=== PATIENT | female | born 1995 | race African-American/Black ===

== ENCOUNTER 2020-06-04 06:55 | Inpatient (IN) | payer BC ==
--- OUTSIDE RECORDS SUMMARY | 2020-06-04 07:46 | XMS ---
:1995 Author Organization [facility] Support Name Relationship Address Phone UE Unavailable Unavailable Unavailable [employer] [address] [place] [address] Re-disclosure Warning The records that you are about to access may contain information from federally- assisted alcohol or drug abuse programs. If such information is present, then the following federally mandated warning applies: This information has been disclosed to you from records protected by federal confidentiality rules (42 CFR part 2). The federal rules prohibit you from making any further disclosure of this information unless further disclosure is expressly permitted by the written consent of the person to whom it pertains or as otherwise permitted by 42 CFR part 2. A general authorization for the release of medical or other information is NOT sufficient for this purpose. The Federal rules restrict any use of the information to criminally investigate or prosecute any alcohol or drug abuse patient.The records that you are about to access may contain highly sensitive health information, the redisclosure of which is protected by Article 27-F of the [facility] Public Health law. If you continue you may haveaccess to information: Regarding HIV / AIDS; Provided by facilities licensed or operated by the [facility] Office of Mental Health; or Provided by the [facility] Office for People With Developmental Disabilities. If such information is present, then the following [facility] mandated warning applies: This information has been disclosed to you from confidential records which are protected by state law. State law prohibits you from making any further disclosure of this information without the specific written consent of the person to whom it pertains, or as otherwise permitted by law. Any unauthorized further disclosure in violation of state law may result in a fine or alf sentence or both. A general authorization for the release of medical or other information is NOT sufficient authorization for further disclosure. Insurance Providers Payer name Policy type / Policy ID Covered Covered democrat's Policy Plan Coverage type democrat ID relationship to [employer] Information boyer PPO [id number] FA [id number] BC PPO [id number] S [id number] Results ID Date Data Source [id number] 05/31/2020 09:36:00 AM EDT [facility] Name Value Range Interpretation Description Data Sup porting Code Source(s) Document(s ) SARS [facility] coronavirus 2 RNA This lab was ordered by [facility] and reported by [facility]. Procedure
[2020-06-04] MEDS ORDERED: BUTORPHANOL TARTRATE 1 MG/ML VIAL IVPB PRN (07:56)
[2020-06-04] MEDS ORDERED: DINOPROSTONE 10 MG VAGINAL SUPPOSITORY VG ONE (07:58)
--- NOTE | 2020-06-04 07:59 | HP ---
Past Medical History - Primary Care Physician PCP:: Jerri Patricio - Admission Chief Complaint: Postdates obesity History of Present Illness: 25 yo P0 edc 05/2020 ega 40.5 weeks admitted for induction due to obesity and postdates Pt with hx of iron infusions for anemia History Source: Patient Limitations to Obtaining History: No Limitations - Past Medical History ...: 1 Heme/Onc: Yes: Anemia - Past Surgical History Past Surgical History: Yes: None Hx Myomectomy: No Hx Transabdominal Cerclage: No - Smoking History Smoking history: Never smoked Have you smoked in the past 12 months: No - Alcohol/Substance Use Hx Alcohol Use: No History of Substance Use: reports: None - Social History ADL: Independent History of Recent Travel: No Home Medications - Allergies Allergies/Adverse Reactions: Allergies Allergy/AdvReac Type Severity Reaction Status Date / Time Penicillins Allergy Severe Hives Verified 05/09/20 14:00 shellfish derived Allergy Verified 05/09/20 14:00 - Home Medications Home Medications: Ambulatory Orders Cyclobenzaprine HCl [Flexeril -] 10 mg PO HS #7 tablet 05/30/19 Naproxen [Naprosyn] 500 mg PO BID #14 tablet 05/30/19 Vitamin Tablet 1 PO DAILY 05/02/20 Review of Systems - Review of Systems Constitutional: reports: No Symptoms Eyes: reports: No Symptoms HENT: reports: No Symptoms Neck: reports: No Symptoms Cardiovascular: reports: No Symptoms Respiratory: reports: No Symptoms Gastrointestinal: reports: No Symptoms Genitourinary: reports: No Symptoms Breasts: reports: No Symptoms Reported Musculoskeletal: reports: No Symptoms Integumentary: reports: No Symptoms Neurological: reports: No Symptoms Endocrine: reports: No Symptoms Hematology/Lymphatic: reports: No Symptoms Psychiatric: reports: No Symptoms Physical Exam - Maternity Constitutional: Yes: Well Nourished, No Distress, Obese Neck: Yes: WNL Breast(s): Yes: WNL - Abdominal Exam/OB Fundal Height: 41 Number of Fetuses: Single Presentation: Vertex Contractions: No Monitor Mode: External Heart Rate Location: [facility] Category: I Accelerations: Non-Uniform Decelerations: None - Vaginal Exam/OB Dilatation (cm): closed Effacement (%): 50 Amniotic Membrane Status: Intact Presentation: Vertex/Position Station: -2 - Physical Exam Edema: Yes Edema: LLE: Trace, RLE: Trace Psychiatric: Yes: WNL, Alert Hemorrhage Risk Assessment - Risk Factors Risk Score: 0 Risk Level: Low Risk Problem List - Problems (1) Obesity affecting in third trimester Code(s): O99.213 - OBESITY COMPLICATING , THIRD TRIMESTER (2) Post-dates Code(s): O48.0 - POST-TERM (3) 40 weeks gestation of Code(s): Z3A.40 - 40 WEEKS GESTATION OF (4) Anemia affecting in third trimester Code(s): O99.013 - ANEMIA COMPLICATING , THIRD TRIMESTER Assessment/Plan morbid obese - bmi 49 Cat 1 anemia in 40 week post term Plan Cervidil placed
[2020-06-04] MEDS ORDERED: ELECTROLYTE-148 SOLN 1,000 ML IV SCH (08:00)
[2020-06-04 09:40] VITALS: BMI 50.8
[2020-06-04 09:55] LABS: BASO % 0.5 % (0-2.0); EOS % 1.4 % (0-4.5); HEMATOCRIT 29.2 % (32.4-45.2); HEMOGLOBIN 9.6 GM/dL (10.7-15.3); LYMPH % 20.6 % (8-40); MCH 25.9 pg (25.7-33.7); MCHC 32.9 g/dl (32.0-36.0); MEAN CELL VOLUME 78.9 fl (80-96); MONO % 7.1 % (3.8-10.2); NEUT % 70.4 % (42.8-82.8); PLATELET COUNT 198 K/MM3 (134-434); RBC 3.71 M/mm3 (3.60-5.2); RDW 19.9 % (11.6-15.6); WHITE BLOOD COUNT 7.5 K/mm3 (4.0-10.0)
[2020-06-04 09:57] LABS: INR 1.07 (0.83-1.09); PROTHROMBIN TIME (PATIENT) 12.6 SEC (9.7-13.0)
[2020-06-04 09:59] LABS: ACTIVATED PTT 29.4 SECONDS (25.2-36.5)
[2020-06-04 10:05] LABS: BLOOD UREA NITROGEN 8.5 mg/dL (7-18); POTASSIUM 4.1 mmol/L (3.5-5.1)
[2020-06-04 10:08] LABS: CREATININE 0.5 mg/dL (0.55-1.3)
[2020-06-04] MEDS ORDERED: OXYTOCIN 30 UNITS in 0.9% NS 30 UNIT/500 ML INFUS.BAG IVPB ONE (20:29)
[2020-06-04] MEDS: ELECTROLYTE-148 SOLN 1,000 ML IV SCH (20:30)
--- NOTE | 2020-06-04 21:39 | PN ---
Ante-Partal Exam - Subjective Subjective: Pt doing well Vital Signs: Vital Signs Temperature 98.2 F 06/04/20 18:00 Pulse Rate 82 06/04/20 21:00 Respiratory Rate 18 06/04/20 21:00 Blood Pressure 137/90 06/04/20 21:00 O2 Sat by Pulse Oximetry (%) Bleeding: No Headache: No Visual changes: No Right upper quadrant pain: No - Contractions Contractions: Yes Regularity: Irregular Monitor Mode: External - Exam during Labor Variability: Moderate Heart Rate Location: [facility] Category: I Monitor Accelerations: Present Monitor Decelerations: None Exam: Vaginal Dilatation (cm): FT Amniotic Membrane Status: Intact Presentation: Vertex - Intrapartum Hemorrhage Risk Medium Risk Factors: None High Risk Factors: None Risk Score: 0 Risk Level: Low Risk - Assessment/Plan Assessment/Plan: Cat 1 obesity post dates 40 + week S/P cervidil Plan start pitocin stadol
[2020-06-04] MEDS ORDERED: OXYTOCIN 30 UNITS in 0.9% NS 30 UNIT/500 ML INFUS.BAG IVPB SCH (21:45)
[2020-06-05] MEDS ORDERED: BUTORPHANOL TARTRATE 2 MG/ML VIAL ONE (02:15)
[2020-06-05] MEDS ORDERED: PCA PUMP NR ONE ×3 (06:00→20:43)
[2020-06-05] MEDS ORDERED: FENTANYL/BUPIVACAINE/NS/PF - PCEA - 50 ML DISP.SYRIN EP ONE ×4 (06:00→17:17)
[2020-06-05] MEDS ORDERED: BUPIVACAINE HCL/PF 0.25% (2.5MG/ML) 10 ML VIAL ONE ×2 (06:05→16:37)
[2020-06-05] MEDS ORDERED: NALOXONE HCL 0.4 MG/ML VIAL IVPUSH PRN (06:38)
[2020-06-05] MEDS ORDERED: FENTANYL/BUPIVACAINE/NS/PF - PCEA - 50 ML DISP.SYRIN EP SCH (06:45)
--- NOTE | 2020-06-05 08:19 | PN ---
Ante-Partal Exam - Subjective Subjective: Pt comfortable after epidural pt with srom at 1150 am Vital Signs: Vital Signs Temperature 98.2 F 06/05/20 06:00 Pulse Rate 78 06/05/20 08:00 Respiratory Rate 20 06/05/20 08:00 Blood Pressure 129/81 06/05/20 08:00 O2 Sat by Pulse Oximetry (%) 99 06/05/20 08:00 Bleeding: No Headache: No Visual changes: No Right upper quadrant pain: No - Contractions Contractions: Yes Monitor Mode: External - Exam during Labor Heart Rate: 130 Variability: Moderate Category: I Monitor Accelerations: Present Monitor Decelerations: None Exam: Vaginal Dilatation (cm): 3 Effacement (%): 100 Amniotic Membrane Status: Ruptured Amniotic Fluid: Clear Presentation: Vertex Station: -1 - Intrapartum Hemorrhage Risk Medium Risk Factors: None High Risk Factors: None Risk Score: 0 Risk Level: Low Risk - Assessment/Plan Assessment/Plan: obesity morbid Cat 1 post dates 40 + dates SP epidural Plan continue pitocin aug
[2020-06-05] MEDS: ELECTROLYTE-148 SOLN 1,000 ML IV SCH (09:45)
[2020-06-05] MEDS ORDERED: LIDOCAINE HCL 1% PRESERVATIVE FREE - 30ML VIAL ONE (17:40)
[2020-06-05] MEDS ORDERED: LIDO 2%/EPI 1:200000 PRESRVFRE (20 ML SDVIAL) ONE (17:40)
[2020-06-05] MEDS ORDERED: LABETALOL HCL 200 MG TABLET (FP) ONE (18:14)
[2020-06-05] MEDS: LABETALOL HCL 200 MG TABLET (FP) PO PRN (18:15)
--- NOTE | 2020-06-05 21:15 | PN ---
Ante-Partal Exam - Subjective Subjective: Pt with epidural contractions+ pt on 20u pitocin Vital Signs: Vital Signs Temperature 99.3 F 06/05/20 20:00 Pulse Rate 79 06/05/20 19:15 Respiratory Rate 20 06/05/20 19:15 Blood Pressure 151/89 06/05/20 19:15 O2 Sat by Pulse Oximetry (%) 100 06/05/20 19:15 Bleeding: No Headache: No Visual changes: No Right upper quadrant pain: No - Contractions Contractions: Yes Regularity: Regular Intensity: Mild/Mod Monitor Mode: External - Exam during Labor Heart Rate: 140 Variability: Moderate Heart Rate Location: [facility] Category: I Monitor Decelerations: None Exam: Vaginal Dilatation (cm): 4 Effacement (%): 100 Amniotic Membrane Status: Ruptured Presentation: Vertex Station: -1 - Intrapartum Hemorrhage Risk Medium Risk Factors: Prolonged Second Stage Risk Score: 1 Risk Level: Medium Risk - Assessment/Plan Assessment/Plan: Failure to progress obesity gestatonal HTN on Labetalol Cat 1 40 + week post dates Plan Primary Section - pt and FOB agrees notify peds and neonatology
[2020-06-05] MEDS ORDERED: IBUPROFEN 800 MG/8 ML IJ IVPB PRN (21:16)
[2020-06-05] MEDS ORDERED: BENZOCAINE 28 GM HEMORRHOIDAL OINTMENT PR PRN (21:16)
[2020-06-05] MEDS ORDERED: BENZOCAINE 20% 57 GM BOTTLE TP PRN (21:16)
[2020-06-05] MEDS ORDERED: METHYLERGONOVINE MALEATE 0.2 MG/1 ML AMP IM PRN (21:16)
[2020-06-05] MEDS ORDERED: WITCH HAZEL 50% (TUCKS) 40 PAD/JAR PAD TP PRN (21:16)
[2020-06-05] MEDS ORDERED: morphine SULFATE/PF 0.5 MG/ML (2cc Syringe - QUVA) ONE (21:19)
[2020-06-05] MEDS ORDERED: CITRIC ACID/SODIUM CITRATE 30 ML UNIT-DOSE CUP PO ONE (21:24)
[2020-06-05] MEDS ORDERED: OXYTOCIN 20 UNITS in 0.9% NS 20 UNIT/1,000 ML INFUS.BAG IV SCH (21:30)
--- NOTE | 2020-06-05 21:37 | OP ---
Operative Note - Note: Operative Date: 06/05/20 Pre-Operative Diagnosis: Failuer to progress Operation: Primary low transverse Section Post-Operative Diagnosis: Same as Pre-op Surgeon: Jerri Patricio Anesthesia: Epidural
[2020-06-05] MEDS ORDERED: GENTAMICIN SO4 80 MG/2 ML VIAL ONE (22:00)
[2020-06-05 22:43] LABS: CORD BASE EXCESS -7.5 mmol/L (0-2); CORD HCO3 21.1 mmHg (20-29); CORD PCO2 54.4 mmHg (30-78); CORD pH 7.207 (7.14-7.44)
[2020-06-05 22:44] LABS: CORD BASE EXCESS -8.6 mmol/L (0-2); CORD HCO3 19.2 mmHg (20-29); CORD pH 7.22 (7.14-7.44)
[2020-06-06] MEDS ORDERED: OXYTOCIN 20 UNITS in 0.9% NS 20 UNIT/1,000 ML INFUS.BAG IV ONE (00:16)
[2020-06-06] MEDS: diphenhydrAMINE HCL 25 MG CAPSULE (FP) PO PRN ×2 (05:21→13:09)
[2020-06-06 08:18] LABS: HEMOGLOBIN 7.9 GM/dL (10.7-15.3); MCH 25.3 pg (25.7-33.7); MCHC 32.8 g/dl (32.0-36.0); MEAN CELL VOLUME 77.1 fl (80-96); MEAN PLT VOLUME 9.7 fl (7.5-11.1); PLATELET COUNT 180 K/MM3 (134-434); RBC 3.12 M/mm3 (3.60-5.2); RDW 19.8 % (11.6-15.6); WHITE BLOOD COUNT 10.3 K/mm3 (4.0-10.0)
[2020-06-06 08:45] LABS: POC NITRAZINE POS
--- NOTE | 2020-06-06 12:34 | PN ---
Progress Note (short form) - Note Progress Note: Post op day#1.S/P C Section under Spinal anesthesia with Duramorph une ventful.Patient stable and c/o little pain for which she is on medication.No any anesthesia related problem.Patient Dc from the anesthesia care.
[2020-06-06] MEDS ORDERED: oxyCODONE HCL 5 MG TABLET PO PRN ×2 (21:16)
[2020-06-06] MEDS ORDERED: BISACODYL 10 MG SUPP.RECT PR PRN (21:16)
[2020-06-06] MEDS: IBUPROFEN 600 MG TABLET (FP) PO PRN (23:09)
[2020-06-06] MEDS: SIMETHICONE 80 MG TAB.CHEW (FP) PO PRN (23:09)
[2020-06-06] MEDS: ACETAMINOPHEN 325 MG TABLET (FP) PO PRN (23:10)
[2020-06-07] MEDS: SIMETHICONE 80 MG TAB.CHEW (FP) PO PRN (08:24)
[2020-06-07] MEDS: ACETAMINOPHEN 325 MG TABLET (FP) PO PRN ×2 (08:24→20:15)
[2020-06-07] MEDS: IBUPROFEN 600 MG TABLET (FP) PO PRN (08:24)
[2020-06-07 20:40] LABS: EPI CELLS 7 /uL (0-25.1); HYALINE CASTS 1 /uL (0-3.1); URINE APPEARANCE CLEAR; URINE BACTERIA 115 /uL (0-1359); URINE BILIRUBIN NEGATIVE (NEGATIVE); URINE COLOR YELLOW; URINE GLUCOSE (UA) NEGATIVE (NEGATIVE); URINE KETONE TRACE (NEGATIVE); URINE LEUK ESTERASE 2+ (NEGATIVE); URINE NITRITE NEGATIVE (NEGATIVE); URINE PROTEIN TRACE (NEGATIVE); URINE RBC 911 /uL (0-23.9); URINE WBC 223 /uL (0-25.8)
[2020-06-07 21:19] LABS: BASO % 0.1 % (0-2.0); EOS % 0.2 % (0-4.5); HEMATOCRIT 23.8 % (32.4-45.2); HEMOGLOBIN 7.9 GM/dL (10.7-15.3); LYMPH % 10.4 % (8-40); MCHC 33.2 g/dl (32.0-36.0); MEAN CELL VOLUME 78.2 fl (80-96); MEAN PLT VOLUME 9.3 fl (7.5-11.1); MONO % 5.2 % (3.8-10.2); NEUT % 84.1 % (42.8-82.8); PLATELET COUNT 194 K/MM3 (134-434); RBC 3.05 M/mm3 (3.60-5.2); RDW 19.9 % (11.6-15.6); WHITE BLOOD COUNT 8.3 K/mm3 (4.0-10.0)
[2020-06-07 21:35] LABS: INR 1.16 (0.83-1.09); PROTHROMBIN TIME (PATIENT) 13.7 SEC (9.7-13.0)
[2020-06-07 21:38] LABS: ACTIVATED PTT 30.6 SECONDS (25.2-36.5)
[2020-06-07 21:51] LABS: ALBUMIN 2.4 g/dl (3.4-5.0); BILIRUBIN,TOTAL 0.3 mg/dL (0.2-1); CALCIUM 8.4 mg/dL (8.5-10.1); CREATININE 0.9 mg/dL (0.55-1.3); TOT PROT 5.7 g/dl (6.4-8.2)
[2020-06-07] MEDS ORDERED: SENNOSIDES/DOCUSATE COMBO (SENNA PLUS) TABLET (UD) PO PRN (22:00)
[2020-06-07] MEDS: GENTAMICIN INJECTION 120 MG in SODIUM CHLORIDE 100 ML IVPB SCH (22:27)
--- NOTE | 2020-06-07 23:57 | PN ---
Progress Note (short form) - Note Progress Note: ob hospitalist note asked to evaluate pod 1 s/p C/S for lack of cervical dilation has fever , no abdominal pain, no dysuria, no n/v or diarrhea, no incision discharge,no calf pain or swelling Last Vital Signs Temp Pulse Resp BP Pulse Ox 100.4 F H 107 H 22 H 112/68 100 06/07/20 23:26 06/07/20 21:50 06/07/20 21:50 06/07/20 21:50 06/07/20 21:50 does not look toxic abdomen soft, no distension, no rebound , no guarding, no cva incision dry, no discharge, no erythema lochia no odor no calf tenderness impression fever, r/o endometritis r/o UTI , r/o viral syndrome . r/o Covid plan septic work up ID consult case discussed with Dr Morillo
[2020-06-08] MEDS: GENTAMICIN INJECTION 120 MG in SODIUM CHLORIDE 100 ML IVPB SCH ×3 (04:35→21:34)
[2020-06-08] MEDS: ACETAMINOPHEN 325 MG TABLET (FP) PO PRN ×2 (06:26→21:39)
--- NOTE | 2020-06-08 07:53 | PN ---
Progress Note (SOAP) - Subjective Chief Complaint: Pt with fever of 102. 5 - Current Medications Current Medications: Active Medications Acetaminophen (Tylenol -) 650 mg PO Q4H PRN PRN Reason: FEVER Last Admin: 06/08/20 06:26 Dose: 650 mg Documented by: Benzocaine (Americaine 20% [place] -) 1 spray TP PRN PRN PRN Reason: Pain - Topical Benzocaine (Americaine Ointment -) 1 applic [place] PRN PRN PRN Reason: Pain - Topical Bisacodyl (Dulcolax Suppository -) 10 mg MI PRN PRN PRN Reason: CONSTIPATION Diphenhydramine HCl (Benadryl -) 25 mg PO Q6H PRN PRN Reason: FOR ITCHING Last Admin: 06/06/20 13:09 Dose: 25 mg Documented by: Parenteral Electrolytes (Plasma-Lyte 148 -) 1,000 mls @ 125 mls/hr IV ASDIR [facility] Last Admin: 06/05/20 06:00 Dose: 125 mls/hr Documented by: Parenteral Electrolytes (Plasma-Lyte 148 -) 1,000 mls @ 125 mls/hr IV ASDIR [facility] Last Admin: 06/05/20 09:45 Dose: 125 mls/hr Documented by: Gentamicin Sulfate 120 mg/ (Sodium Chloride) 103 mls @ 103 mls/hr IVPB Q8H [facility] Last Admin: 06/08/20 04:35 Dose: 103 mls/hr Documented by: Metronidazole (Flagyl 500mg Premixed Ivpb -) 500 mg in 100 mls @ 100 mls/hr IVPB Q8H [facility] Last Admin: 06/08/20 05:48 Dose: 100 mls/hr Documented by: Ibuprofen (Motrin -) 600 mg PO Q4H PRN PRN Reason: FEVER Last Admin: 06/07/20 08:24 Dose: 600 mg Documented by: Ibuprofen (Caldolor Injection -) 800 mg IVPB Q6H PRN PRN Reason: Fever - If PO not effective. Last Admin: 06/06/20 13:01 Dose: 800 mg Documented by: Labetalol HCl (Normodyne -) 200 mg PO Q6H PRN PRN Reason: HYPERTENSION Last Admin: 06/05/20 18:15 Dose: 200 mg Documented by: Methylergonovine Maleate (Methergine Injection -) 0.2 mg IM Q4H PRN PRN Reason: EXCESSIVE BLEEDING Naloxone HCl (Narcan -) 0.4 mg IVPUSH PRN PRN PRN Reason: Sedation Oxycodone HCl (Roxicodone -) 5 mg PO Q4H PRN PRN Reason: PAIN LEVEL 1 - 3 Oxycodone HCl (Roxicodone -) 10 mg PO Q4H PRN PRN Reason: PAIN LEVEL 4 - 6 Senna/Docusate Sodium (Pericolace -) 2 tablet PO HS PRN PRN Reason: CONSTIPATION Simethicone (Mylicon -) 80 mg PO Q4H PRN PRN Reason: GAS Last Admin: 06/07/20 08:24 Dose: 80 mg Documented by: Henry Lopez/Glycerin (Tucks Pads -) 1 pad TP PRN PRN PRN Reason: Pain - Topical - Objective Vital Signs: Vital Signs Temperature 102.5 F H 06/08/20 06:00 Pulse Rate 102 H 06/08/20 06:00 Respiratory Rate 18 06/08/20 06:00 Blood Pressure 129/77 06/08/20 06:00 O2 Sat by Pulse Oximetry (%) 98 06/08/20 02:00 Constitutional: Yes: Well Nourished, Calm Gastrointestinal: Yes: WNL, Soft, Abdomen, Obese ....Post : Yes: Uterus firm, Uterus tender Breast(s): Yes: WNL Musculoskeletal: Yes: WNL Extremities: Yes: WNL Edema: Yes Edema: LLE: Trace, RLE: Trace Wound/Incision: Yes: Well Approximated, Open to air Neurological: Yes: WNL, Alert, Oriented Psychiatric: Yes: WNL, Alert, Oriented Labs Lab Results: CBCD WBC 8.3 K/mm3 (4.0-10.0) 06/07/20 20:30 RBC 3.05 M/mm3 (3.60-5.2) L 06/07/20 20:30 Hgb 7.9 GM/dL (10.7-15.3) L 06/07/20 20:30 Hct 23.8 % (32.4-45.2) L 06/07/20 20:30 MCV 78.2 fl (80-96) L 06/07/20 20:30 MCHC 33.2 g/dl (32.0-36.0) 06/07/20 20:30 RDW 19.9 % (11.6-15.6) H 06/07/20 20:30 Plt Count 194 K/MM3 (134-434) 06/07/20 20:30 MPV 9.3 fl (7.5-11.1) 06/07/20 20:30 CMP Sodium 137 mmol/L (136-145) 06/07/20 20:30 Potassium 4.0 mmol/L (3.5-5.1) 06/07/20 20:30 Chloride 106 mmol/L (98-107) 06/07/20 20:30 Carbon Dioxide 23 mmol/L (21-32) 06/07/20 20:30 Anion Gap 7 MMOL/L (8-16) L 06/07/20 20:30 BUN 14.0 mg/dL (7-18) 06/07/20 20:30 Creatinine 0.9 mg/dL (0.55-1.3) 06/07/20 20:30 Random Glucose 82 mg/dL (74-106) 06/07/20 20:30 Calcium 8.4 mg/dL (8.5-10.1) L 06/07/20 20:30 Total Bilirubin 0.3 mg/dL (0.2-1) 06/07/20 20:30 AST 43 U/L (15-37) H 06/07/20 20:30 ALT 21 U/L (13-61) 06/07/20 20:30 Alkaline Phosphatase 125 U/L (45-117) H 06/07/20 20:30 Total Protein 5.7 g/dl (6.4-8.2) L 06/07/20 20:30 Albumin 2.4 g/dl (3.4-5.0) L 06/07/20 20:30 Problem List - Problems (1) Obesity affecting in third trimester Problems reviewed: Yes Code(s): O99.213 - OBESITY COMPLICATING , THIRD TRIMESTER (2) Post-dates Code(s): O48.0 - POST-TERM (3) 40 weeks gestation of Code(s): Z3A.40 - 40 WEEKS GESTATION OF (4) Anemia affecting in third trimester Code(s): O99.013 - ANEMIA COMPLICATING , THIRD TRIMESTER (5) Endometritis following delivery Problems reviewed: Yes Code(s): O86.12 - ENDOMETRITIS FOLLOWING DELIVERY (6) Anemia complicating puerperium Problems reviewed: Yes Code(s): O99.03 - ANEMIA COMPLICATING THE PUERPERIUM (7) Obesity complicating puerperium Problems reviewed: Yes Code(s): O99.215 - OBESITY COMPLICATING THE PUERPERIUM Assessment/Plan morbid obese - bmi 49 anemia gestational hypertension on labatalol POD2 Plan Gentamycin flagyl Ferrous sulfate BID check cultures septic protocol
[2020-06-08 08:13] LABS: HEMATOCRIT 22.9 % (32.4-45.2); HEMOGLOBIN 7.4 GM/dL (10.7-15.3); MCH 25.3 pg (25.7-33.7); MCHC 32.5 g/dl (32.0-36.0); MEAN PLT VOLUME 9.7 fl (7.5-11.1); PLATELET COUNT 197 K/MM3 (134-434); RBC 2.94 M/mm3 (3.60-5.2); RDW 19.6 % (11.6-15.6); WHITE BLOOD COUNT 8.8 K/mm3 (4.0-10.0)
[2020-06-08] MEDS: ACETAMINOPHEN 1000 MG/100 ML VIAL (NON FORMULARY) IVPB PRN (08:29)
[2020-06-09] MEDS: GENTAMICIN INJECTION 120 MG in SODIUM CHLORIDE 100 ML IVPB SCH ×3 (05:50→20:50)
[2020-06-09] MEDS: ACETAMINOPHEN 1000 MG/100 ML VIAL (NON FORMULARY) IVPB PRN (06:44)
[2020-06-09] MEDS: LABETALOL HCL 200 MG TABLET (FP) PO PRN ×2 (08:49→18:38)
[2020-06-10] MEDS: GENTAMICIN INJECTION 120 MG in SODIUM CHLORIDE 100 ML IVPB SCH ×3 (04:45→20:52)
[2020-06-10] MEDS: LABETALOL HCL 200 MG TABLET (FP) PO PRN (06:38)
--- NOTE | 2020-06-10 13:36 | PN ---
Progress Note (SOAP) - Subjective Chief Complaint: Pt doing well no fever however elevated BP on labetalol Pt found with baby sitting in chair FOB asked about sickle cell diease he has and if baby will have it - Current Medications Current Medications: Active Medications Acetaminophen (Tylenol -) 650 mg PO Q4H PRN PRN Reason: FEVER Last Admin: 06/08/20 21:39 Dose: 650 mg Documented by: Benzocaine (Americaine 20% [place] -) 1 spray TP PRN PRN PRN Reason: Pain - Topical Benzocaine (Americaine Ointment -) 1 applic [place] PRN PRN PRN Reason: Pain - Topical Bisacodyl (Dulcolax Suppository -) 10 mg CA PRN PRN PRN Reason: CONSTIPATION Diphenhydramine HCl (Benadryl -) 25 mg PO Q6H PRN PRN Reason: FOR ITCHING Last Admin: 06/06/20 13:09 Dose: 25 mg Documented by: Parenteral Electrolytes (Plasma-Lyte 148 -) 1,000 mls @ 125 mls/hr IV ASDIR [facility] Last Admin: 06/05/20 06:00 Dose: 125 mls/hr Documented by: Parenteral Electrolytes (Plasma-Lyte 148 -) 1,000 mls @ 125 mls/hr IV [facility] Last Admin: 06/05/20 09:45 Dose: 125 mls/hr Documented by: Gentamicin Sulfate 120 mg/ (Sodium Chloride) 103 mls @ 103 mls/hr IVPB Q8H [facility] Last Admin: 06/10/20 04:45 Dose: 103 mls/hr Documented by: Metronidazole (Flagyl 500mg Premixed Ivpb -) 500 mg in 100 mls @ 100 mls/hr IVPB Q8H [facility] Last Admin: 06/10/20 13:05 Dose: 100 mls/hr Documented by: Ibuprofen (Motrin -) 600 mg PO Q4H PRN PRN Reason: FEVER Last Admin: 06/07/20 08:24 Dose: 600 mg Documented by: Ibuprofen (Caldolor Injection -) 800 mg IVPB Q6H PRN PRN Reason: Fever - If PO not effective. Last Admin: 06/06/20 13:01 Dose: 800 mg Documented by: Labetalol HCl (Normodyne -) 200 mg PO Q6H PRN PRN Reason: HYPERTENSION Last Admin: 06/10/20 06:38 Dose: 200 mg Documented by: Methylergonovine Maleate (Methergine Injection -) 0.2 mg IM Q4H PRN PRN Reason: EXCESSIVE BLEEDING Naloxone HCl (Narcan -) 0.4 mg IVPUSH PRN PRN PRN Reason: Sedation Nifedipine (Procardia Xl -) 30 mg PO DAILY [facility] Senna/Docusate Sodium (Pericolace -) 2 tablet PO HS PRN PRN Reason: CONSTIPATION Simethicone (Mylicon -) 80 mg PO Q4H PRN PRN Reason: GAS Last Admin: 06/07/20 08:24 Dose: 80 mg Documented by: Henry Lopez/Glycerin (Tucks Pads -) 1 pad TP PRN PRN PRN Reason: Pain - Topical - Objective Vital Signs: Vital Signs Temperature 98.8 F 06/10/20 06:00 Pulse Rate 68 06/10/20 06:00 Respiratory Rate 18 06/10/20 06:00 Blood Pressure 146/98 06/10/20 06:00 O2 Sat by Pulse Oximetry (%) 98 06/08/20 19:45 Constitutional: Yes: Well Nourished, No Distress ....Post : Yes: Uterus firm, Uterus non-tender Breast(s): Yes: WNL Extremities: Yes: WNL Wound/Incision: Yes: Clean/Dry, Well Approximated, Steri Strips, Open to air Psychiatric: Yes: WNL, Alert, Oriented Labs Lab Results: CBCD WBC 8.8 K/mm3 (4.0-10.0) 06/08/20 06:59 RBC 2.94 M/mm3 (3.60-5.2) L 06/08/20 06:59 Hgb 7.4 GM/dL (10.7-15.3) L 06/08/20 06:59 Hct 22.9 % (32.4-45.2) L 06/08/20 06:59 MCV 78.0 fl (80-96) L 06/08/20 06:59 MCHC 32.5 g/dl (32.0-36.0) 06/08/20 06:59 RDW 19.6 % (11.6-15.6) H 06/08/20 06:59 Plt Count 197 K/MM3 (134-434) 06/08/20 06:59 MPV 9.7 fl (7.5-11.1) 06/08/20 06:59 CMP Sodium 137 mmol/L (136-145) 06/07/20 20:30 Potassium 4.0 mmol/L (3.5-5.1) 06/07/20 20:30 Chloride 106 mmol/L (98-107) 06/07/20 20:30 Carbon Dioxide 23 mmol/L (21-32) 06/07/20 20:30 Anion Gap 7 MMOL/L (8-16) L 06/07/20 20:30 BUN 14.0 mg/dL (7-18) 06/07/20 20:30 Creatinine 0.9 mg/dL (0.55-1.3) 06/07/20 20:30 Random Glucose 82 mg/dL (74-106) 06/07/20 20:30 Calcium 8.4 mg/dL (8.5-10.1) L 06/07/20 20:30 Total Bilirubin 0.3 mg/dL (0.2-1) 06/07/20 20:30 AST 43 U/L (15-37) H 06/07/20 20:30 ALT 21 U/L (13-61) 06/07/20 20:30 Alkaline Phosphatase 125 U/L (45-117) H 06/07/20 20:30 Total Protein 5.7 g/dl (6.4-8.2) L 06/07/20 20:30 Albumin 2.4 g/dl (3.4-5.0) L 06/07/20 20:30 Problem List - Problems (1) Obesity affecting in third trimester Code(s): O99.213 - OBESITY COMPLICATING , THIRD TRIMESTER (2) Post-dates Code(s): O48.0 - POST-TERM (3) 40 weeks gestation of Code(s): Z3A.40 - 40 WEEKS GESTATION OF (4) Anemia affecting in third trimester Code(s): O99.013 - ANEMIA COMPLICATING , THIRD TRIMESTER Assessment/Plan morbid obese - bmi 49 anemia in gestational hypertension on labatalol will add procardia and call renal consult Plan Procardia XL 30mg labetalol PRN renal consult Ferrous sulfate BID
[2020-06-10] MEDS: NIFEdipine E.R. 30 MG TABLET PO SCH (14:10)
[2020-06-10] MEDS: metroNIDAZOLE 250 MG TABLET PO SCH (22:30)
--- NOTE | 2020-06-11 06:33 | PN ---
Progress Note (SOAP) - Current Medications Current Medications: Active Medications Acetaminophen (Tylenol -) 650 mg PO Q4H PRN PRN Reason: FEVER Last Admin: 06/08/20 21:39 Dose: 650 mg Documented by: Benzocaine (Americaine 20% [place] -) 1 spray TP PRN PRN PRN Reason: Pain - Topical Benzocaine (Americaine Ointment -) 1 applic [place] PRN PRN PRN Reason: Pain - Topical Bisacodyl (Dulcolax Suppository -) 10 mg [place] PRN PRN PRN Reason: CONSTIPATION Diphenhydramine HCl (Benadryl -) 25 mg PO Q6H PRN PRN Reason: FOR ITCHING Last Admin: 06/06/20 13:09 Dose: 25 mg Documented by: Parenteral Electrolytes (Plasma-Lyte 148 -) 1,000 mls @ 125 mls/hr IV ASDIR [facility] Last Admin: 06/05/20 06:00 Dose: 125 mls/hr Documented by: Parenteral Electrolytes (Plasma-Lyte 148 -) 1,000 mls @ 125 mls/hr IV ASDIR [facility] Last Admin: 06/05/20 09:45 Dose: 125 mls/hr Documented by: Ibuprofen (Motrin -) 600 mg PO Q4H PRN PRN Reason: FEVER Last Admin: 06/07/20 08:24 Dose: 600 mg Documented by: Ibuprofen (Caldolor Injection -) 800 mg IVPB Q6H PRN PRN Reason: Fever - If PO not effective. Last Admin: 06/06/20 13:01 Dose: 800 mg Documented by: Labetalol HCl (Normodyne -) 200 mg PO Q6H PRN PRN Reason: HYPERTENSION Last Admin: 06/10/20 06:38 Dose: 200 mg Documented by: Methylergonovine Maleate (Methergine Injection -) 0.2 mg IM Q4H PRN PRN Reason: EXCESSIVE BLEEDING Metronidazole (Flagyl -) 500 mg PO BID [facility] Last Admin: 06/10/20 22:30 Dose: Not Given Documented by: Naloxone HCl (Narcan -) 0.4 mg IVPUSH PRN PRN PRN Reason: Sedation Nifedipine (Procardia Xl -) 30 mg PO DAILY [facility] Last Admin: 06/10/20 14:10 Dose: 30 mg Documented by: Senna/Docusate Sodium (Pericolace -) 2 tablet PO HS PRN PRN Reason: CONSTIPATION Simethicone (Mylicon -) 80 mg PO Q4H PRN PRN Reason: GAS Last Admin: 06/07/20 08:24 Dose: 80 mg Documented by: Henry Lopez/Glycerin (Tucks Pads -) 1 pad TP PRN PRN PRN Reason: Pain - Topical - Objective Vital Signs: Vital Signs Temperature 98.4 F 06/11/20 06:00 Pulse Rate 72 06/11/20 06:00 Respiratory Rate 18 06/11/20 06:00 Blood Pressure 122/83 06/11/20 06:00 O2 Sat by Pulse Oximetry (%) 98 06/08/20 19:45 Constitutional: Yes: Well Nourished, No Distress Gastrointestinal: Yes: WNL, Soft, Abdomen, Obese ....Post : Yes: Uterus firm, Uterus non-tender Wound/Incision: Yes: Steri Strips, Open to air Neurological: Yes: WNL, Alert, Oriented Labs Lab Results: CBCD WBC 8.8 K/mm3 (4.0-10.0) 06/08/20 06:59 RBC 2.94 M/mm3 (3.60-5.2) L 06/08/20 06:59 Hgb 7.4 GM/dL (10.7-15.3) L 06/08/20 06:59 Hct 22.9 % (32.4-45.2) L 06/08/20 06:59 MCV 78.0 fl (80-96) L 06/08/20 06:59 MCHC 32.5 g/dl (32.0-36.0) 06/08/20 06:59 RDW 19.6 % (11.6-15.6) H 06/08/20 06:59 Plt Count 197 K/MM3 (134-434) 06/08/20 06:59 MPV 9.7 fl (7.5-11.1) 06/08/20 06:59 CMP Sodium 137 mmol/L (136-145) 06/07/20 20:30 Potassium 4.0 mmol/L (3.5-5.1) 06/07/20 20:30 Chloride 106 mmol/L (98-107) 06/07/20 20:30 Carbon Dioxide 23 mmol/L (21-32) 06/07/20 20:30 Anion Gap 7 MMOL/L (8-16) L 06/07/20 20:30 BUN 14.0 mg/dL (7-18) 06/07/20 20:30 Creatinine 0.9 mg/dL (0.55-1.3) 06/07/20 20:30 Random Glucose 82 mg/dL (74-106) 06/07/20 20:30 Calcium 8.4 mg/dL (8.5-10.1) L 06/07/20 20:30 Total Bilirubin 0.3 mg/dL (0.2-1) 06/07/20 20:30 AST 43 U/L (15-37) H 06/07/20 20:30 ALT 21 U/L (13-61) 06/07/20 20:30 Alkaline Phosphatase 125 U/L (45-117) H 06/07/20 20:30 Total Protein 5.7 g/dl (6.4-8.2) L 06/07/20 20:30 Albumin 2.4 g/dl (3.4-5.0) L 06/07/20 20:30 Problem List - Problems (1) Obesity affecting in third trimester Code(s): O99.213 - OBESITY COMPLICATING , THIRD TRIMESTER (2) Post-dates Code(s): O48.0 - POST-TERM (3) 40 weeks gestation of Code(s): Z3A.40 - 40 WEEKS GESTATION OF (4) Anemia affecting in third trimester Code(s): O99.013 - ANEMIA COMPLICATING , THIRD TRIMESTER (5) Endometritis following delivery Problems reviewed: Yes Code(s): O86.12 - ENDOMETRITIS FOLLOWING DELIVERY (6) Anemia complicating puerperium Problems reviewed: Yes Code(s): O99.03 - ANEMIA COMPLICATING THE PUERPERIUM (7) Obesity complicating puerperium Problems reviewed: Yes Code(s): O99.215 - OBESITY COMPLICATING THE PUERPERIUM Assessment/Plan morbid obese - bmi 49 anemia gestational hypertension on Procardia Hold labetalol POD5 Plan dc gnetamycin last night flagyl po Ferrous sulfate BID DC home on po procardia
[2020-06-11] MEDS: NIFEdipine E.R. 30 MG TABLET PO SCH (10:14)
--- NOTE | 2020-06-11 11:13 | CON.NEP ---
Consult Consult Specialty:: Nephrology Referred by:: Dr. Patricio Reason for Consultation:: hypertension - History of Present Illness Chief Complaint: Elevated blood pressures History of Present Illness: This is a 25 year old woman with no significant past medical history who presented at 40 weeks gestation and noted to have hypertension. Pt seen and examined at the bedside. She reports having high blood pressures during the last part of her . Denies any chest pain, headache, palpitations, nausea, vomiting or diarrhea. Leg swelling is present but improved. Pt started on Nifedpine ER yesterday. She reports that her grandparents have elevated blood pressures. - History Source History Provided By: Patient - Past Surgical History Past Surgical History: Yes: None - Alcohol/Substance Use Hx Alcohol Use: No History of Substance Use: reports: None - Smoking History Smoking history: Never smoked Have you smoked in the past 12 months: No - Social History ADL: Independent History of Recent Travel: No Home Medications - Allergies Allergies/Adverse Reactions: Allergies Allergy/AdvReac Type Severity Reaction Status Date / Time Penicillins Allergy Severe Hives Verified 05/09/20 14:00 shellfish derived Allergy Severe Swelling Verified 06/04/20 14:07 banana Allergy Mild Itching Verified 06/04/20 14:07 - Home Medications Home Medications: Ambulatory Orders Cyclobenzaprine HCl [Flexeril -] 10 mg PO HS #7 tablet 05/30/19 Naproxen [Naprosyn] 500 mg PO BID #14 tablet 05/30/19 Vitamin Tablet 1 PO DAILY 05/02/20 Nifedipine [Procardia Xl] 30 mg PO DAILY 60 Days #60 tab.er.24 06/11/20 Oxycodone HCl/Acetaminophen [Percocet 5-325 mg Tablet] 2 tab PO Q4H #20 tablet MDD 6 06/11/20 metroNIDAZOLE [Metronidazole] 500 mg PO BID 5 Days #10 tablet 06/11/20 Family Medical History Family History: Unremarkable Review of Systems - Review of Systems Constitutional: reports: No Symptoms Eyes: reports: No Symptoms HENT: reports: No Symptoms Neck: reports: No Symptoms Cardiovascular: reports: No Symptoms Respiratory: reports: No Symptoms Gastrointestinal: reports: No Symptoms Genitourinary: reports: No Symptoms Musculoskeletal: reports: No Symptoms Integumentary: reports: No Symptoms Neurological: reports: No Symptoms Nephrology Consult - Height Height: 5 ft 6 in - Weight Weight: 142.882 kg - BMI Body Mass Index (BMI): 50.8 - Lab Results CBC,BMP: CBC, BMP 06/08/20 06:59 06/07/20 20:30 Anion Gap: Anion Gap Anion Gap 7 MMOL/L (8-16) L 06/07/20 20:30 - Physical Examination Vital Signs: Vital Signs Temperature 98.4 F 06/11/20 06:00 Pulse Rate 72 06/11/20 06:00 Respiratory Rate 18 06/11/20 06:00 Blood Pressure 122/83 06/11/20 06:00 O2 Sat by Pulse Oximetry (%) 98 06/08/20 19:45 Constitutional: Yes: No Distress, Calm Neck: Yes: Supple Cardiovascular: Yes: Regular Rate and Rhythm Respiratory: Yes: Regular Gastrointestinal: Yes: Soft, Abdomen, Obese Extremities: No: Cyanosis Edema: Yes Edema: LLE: Trace, RLE: Trace Assessment/Plan 25 year old woman with no significant past medical history who presented at 40 weeks gestation and noted to have hypertension. 1. hypertension without proteinuria likely related to induced hypertension 2. 40 weeks gestation s/p UA showed no proteinuria. BP is moderated by Nifedpine ER 30mg daily, would continue on discharge Instructed patient to maintain a low sodium diet on discharge. Pain control as needed w/o NSAIDs if possible. Symptoms of hypotension/hypertension discussed with the patient Advised to monitor BP at home twice daily To follow up in our office in 1 week for BP monitoring Thank you Stable for discharge Stevie Donaldson DO
[2020-06-11] MEDS: metroNIDAZOLE 250 MG TABLET PO SCH (11:49)
[2020-06-11 11:57] VITALS: BP 135/89; PULSE 76
[2020-06-11 11:58] VITALS: TEMP 98.8
--- NOTE | 2020-06-12 17:53 | PATH ---
Surgical Pathology Report Patient Name: MAXIMO CARR Med. Rec. #: [id number] /Age/Gender: 1995 (Age: 25) / F Account: [id number] Location: [facility] OBS/PARAFFINER Taken: 06/05/2020 Received: 06/06/2020 Reported: 06/12/2020 Physicians: Jerri Patricio M.D. Specimen(s) Received PLACENTA Clinical History , 40.6 weeks gestation Final Diagnosis PLACENTA, SECTION: 545 G THIRD TRIMESTER PLACENTA WITH TRIVASCULAR UMBILICAL CORD AND UNREMARKABLE PLACENTAL MEMBRANES. Electronically Signed Gabbi Dowd M.D. Gross Description The specimen is received fresh labeled placenta and is a 545 gram, 19.5 x 15.0 x 2.7 cm. placenta with attached membranes and umbilical cord. The attached membranes are lao, translucent with focal opacities and insert marginally. The umbilical cord measures 15.5 cm. in length and averages 1.2 cm. in diameter. The cord inserts eccentrically, 4 cm. to the nearest margin. No true knots or strictures are identified. Cut surface of the umbilical cord reveals 3 vessels. The surface is rocha-blue with minimal fibrin deposition and appropriate caliber vessels. The maternal surface is red-brown with focal defects. Sectioning reveals red-brown, spongy parenchyma. No lesions are identified. Stone Operator sections are submitted in three cassettes as follows: 1- membrane rolls and umbilical cord; 2-3- full thickness sections of placenta. 06/08/2020 [facility]06/08/2020
--- NOTE | 2020-06-18 07:17 | DS ---
Physical Exam-STOCK CONTROLLER Vital Signs: Vital Signs Temperature 98.8 F 06/11/20 09:30 Pulse Rate 76 06/11/20 11:56 Respiratory Rate 18 06/11/20 11:56 Blood Pressure 135/89 06/11/20 11:56 O2 Sat by Pulse Oximetry (%) 98 06/08/20 19:45 Constitutional: Yes: Well Nourished, No Distress, Obese ....Post : Yes: Uterus firm, Uterus non-tender Edema: Yes Edema: LLE: Trace, RLE: Trace Wound/Incision: Yes: Clean/Dry, Well Approximated, Open to air Neurological: Yes: WNL, Alert, Oriented Labs: CBC, BMP 06/08/20 06:59 06/07/20 20:30 Delivery - Delivery Section: Primary, Low Flap Transverse Type of Anesthesia: Epidural, Spinal Episiotomy/Laceration: None EBL (cc): 800 Delivery, Single - Stages of Labor Date 1st Stage Initiatied: 06/05/20 Time 1st Stage Initiated: 17:00 Date of Delivery: 06/05/20 Time of Delivery: 21:56 Time Placenta Delivered: 21:58 Placenta: Yes: Spontaneous - 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 Present: Yes Name: Samanta Mckeon Gender: Female Weight: 7 lb 12 oz Position: OP Total Hours ROM (Hrs/Mins): 10hrs/6min - 1 Minute Total Score: 9 5 Minutes Total Score: 9 - [place] Feeding Plan Initial Plan: Exclusive throughout hospitalization Discharge Summary Problems reviewed: Yes Reason For Visit: SCHEDULED INDUCTION Anemia Endometritis morbid obesity gestational hypertension Procedures: Principal: Low transverse Section Hospital Course: Endometritis gestational hypertension Condition: Fair - Instructions Diet, Activity, Other Instructions: Physical activity Resume your normal everyday activity as tolerated no heavy lifting or exercise until seen by your surgeon. You may walk unlimited landy of and climb stairs. You may resume driving the car when you feel safe and comfortable behind the wheel. No sexual activity as instructed. Wound care If you have a bandage, leave it on, and keep dry for 48-72 hours. After that time discard the outer bandage. If they are tapes on the skin under the out of bandage leave them in place. They will peel off in the next 7 to 10 days. Do Not Peel them off. You may shower the day after surgery. If there are tapes present on the skin, you may shower over them. Diet There are no dietary restrictions. Eat healthy, high-fiber foods. Drink 6 to 8 glasses of liquid each day. This will assist in keeping your bowels are regular. Pain management You may take Tylenol or acetaminophen or Ibuprofen (for example, Motrin, Advil etc.) from my pain prescription medication is ordered should be taken as prescribed for moderate to severe pain. Call MD for any of the following: Severe pain not relieved by medication Fever of 101 or higher Excessive bleeding or drainage on dressing Inability to urinate Referrals: Jerri Patricio MD [Staff Physician] - Stevie Donaldson MD [Staff Physician] - Disposition: HOME - Home Medications Comprehensive Discharge Medication List: Ambulatory Orders Cyclobenzaprine HCl [Flexeril -] 10 mg PO HS #7 tablet 05/30/19 Naproxen [Naprosyn] 500 mg PO BID #14 tablet 05/30/19 Vitamin Tablet 1 PO DAILY 05/02/20 Nifedipine [Procardia Xl] 30 mg PO DAILY 60 Days #60 tab.er.24 06/11/20 Oxycodone HCl/Acetaminophen [Percocet 5-325 mg Tablet] 2 tab PO Q4H #20 tablet MDD 6 06/11/20 metroNIDAZOLE [Metronidazole] 500 mg PO BID 5 Days #10 tablet 06/11/20
--- NOTE | 2020-06-18 08:20 | OP ---
DATE OF OPERATION: 06/05/2020 PREOPERATIVE DIAGNOSIS: Failure to progress and postdates as well as anemia in and morbid obesity. OPERATION: Primary low transverse section. POSTOPERATIVE DIAGNOSIS: Failure to progress and postdates as well as anemia in and morbid obesity, and live female . SURGEON: Sylvie Patricio MD BELL SPINNER: SEBASTIEN [place]; unavailable ANESTHESIA: Epidural. PROCEDURE: Patient was taken to the operating room, placed in the supine position, prepped and draped in the usual sterile fashion. Timeout was performed in accordance with hospital regulation. Pfannenstiel skin incision was made with a scalpel. Cautery was then used to go through the layers of the abdominal wall to the level of the fascia. Fascia was cut in the midline and cautery was then used to open the fascia in smiling fashion. Michael was then used to bluntly and sharply dissect the rectus muscle off the fascia. Muscle was split in the midline. Peritoneal cavity was then entered and carried upward and downward. Bladder retractor was then placed. Scalpel was then used to make a low transverse uterine incision. Incision was carried upwards using bandage scissors. A live female infant was delivered in OP position. Nose and mouth suction performed. Shoulders were delivered without difficulty. Cord was clamped and cut. Cord blood obtained. Cord pH obtained. Infant was handed to chronic specialist. Placenta was spontaneously removed from the uterus. Uterus was cleaned with clean lap pads and exteriorized. Uterine incision was then closed using 0 Biosyn suture, first layer continuous interlocking, second layer imbricating the first layer. Hemostasis was achieved. Tubes and ovaries were noted to be normal. Hemostasis was achieved using [id number] sutures. Uterus interiorized. Abdominal cavity cleaned with clean lap pads. Peritoneal closed using 0 Biosyn suture. Muscle was approximated in the midline using 0 Biosyn suture. Fascia was then closed using 0 Vicryl suture in 2 parts. Skin was then closed using 3-0 Vicryl suture in subcuticular fashion. Wound was washed and dressed. The patient had tolerated procedure well, was taken to recovery in stable condition. SYLVIE PATRICIO M.D. EMELY/[id number]
== END 2020-06-11 13:23 | disposition home or self-care (01) | DRG 787 ==
LOC: JLDR 06:55 → J3W 06-06 00:58
PROVIDERS: ADMIT Obstetrics & Gynecology; ATTEND Obstetrics & Gynecology
PROC: 3E0P7VZ Introduction of Hormone into Female Reproductive, Via Natural or Artificial Opening (ICD-10-PCS; 2020-06-04)
PROC: 10D00Z1 Extraction of Products of Conception, Low, Open Approach (ICD-10-PCS; principal; 2020-06-05)
DX: O82 Encounter for cesarean delivery without indication (principal); O86.4 Pyrexia of unknown origin following delivery; O86.12 Endometritis following delivery; O48.0 Post-term pregnancy; O13.4 Gestational [pregnancy-induced] hypertension without significant proteinuria, complicating childbirth; O13.5 Gestational [pregnancy-induced] hypertension without significant proteinuria, complicating the puerperium; O99.214 Obesity complicating childbirth; E66.01 Morbid (severe) obesity due to excess calories; O62.0 Primary inadequate contractions; O32.4XX0 Maternal care for high head at term, not applicable or unspecified; O99.03 Anemia complicating the puerperium; D64.89 Other specified anemias; O42.92 Full-term premature rupture of membranes, unspecified as to length of time between rupture and onset of labor; Z3A.40 40 weeks gestation of pregnancy; Z37.0 Single live birth; Z86.19 Personal history of other infectious and parasitic diseases; Z88.0 Allergy status to penicillin; Z91.013 Allergy to seafood; Z91.018 Allergy to other foods
CPT/HCPCS: 36415; 36600; 80048; 80053; 81003; 82803; 83605; 83986-QW; 85025; 85027; 85610; 85730; 86780; 86850; 86900; 86901; 87040; 87086; 88307-TC; J0131

== ENCOUNTER 2022-04-28 17:58 | Emergency (ER) | payer BC, OTHER ==
[2022-04-28 18:21] VITALS: BP 114/79; PULSE 76; RESP 18; TEMP 98.9; BMI 40.3
[2022-04-28] MEDS ORDERED: IBUPROFEN 600 MG TABLET (FP) PO ONE ×2 (19:48→19:52)
== END 2022-04-28 20:03 | disposition home or self-care (01) ==
LOC: JER 17:58 → JERFT 17:58
DX: M79.10 Myalgia, unspecified site (principal); V87.7XXA Person injured in collision between other specified motor vehicles (traffic), initial encounter; Y92.9 Unspecified place or not applicable
CPT/HCPCS: 99283-25

== ENCOUNTER 2022-10-16 14:16 | Emergency (ER) | payer BC, OTHER ==
[2022-10-16 14:37] VITALS: BP 122/84; PULSE 98; RESP 17; TEMP 99.3; BMI 40.3
[2022-10-16] MEDS ORDERED: ONDANSETRON 4 MG/2 ML VIAL IVPUSH ONE (15:02)
[2022-10-16] MEDS ORDERED: SODIUM CHLORIDE 1,000 ML IV STA (15:02)
[2022-10-16] MEDS ORDERED: FAMOTIDINE 20 MG/50 ML IVPB 20 MG/50 ML MG IVPB ONE ×2 (15:03→15:09)
[2022-10-16] MEDS ORDERED: ACETAMINOPHEN 1000 MG/100 ML BAG IVPB ONE (15:03)
[2022-10-16] MEDS ORDERED: MAG HYDROX/AL HYDROX/SIMETH 30 ML UNIT-DOSE CUP PO ONE (15:03)
[2022-10-16] MEDS ORDERED: MAG HYDROX/AL HYDROX/SIMETH 30 ML UNIT-DOSE CUP ONE (15:09)
[2022-10-16] MEDS ORDERED: ACETAMINOPHEN INJECTION 100 ML IVPB ONE (15:09)
[2022-10-16] MEDS ORDERED: ONDANSETRON 4 MG/2 ML VIAL ONE (15:09)
[2022-10-16 16:03] LABS: BASO % 0.1 % (0-2.0); HEMATOCRIT 42.1 % (32.4-45.2); HEMOGLOBIN 13.9 GM/dL (10.7-15.3); LYMPH % 5.4 % (8-40); MCH 27.1 pg (25.7-33.7); MCHC 33.1 g/dl (32.0-36.0); MEAN PLT VOLUME 9.1 fl (7.5-11.1); MONO % 3.9 % (3.8-10.2); NEUT % 90.6 % (42.8-82.8); PLATELET COUNT 266 10^3/uL (134-434); RBC 5.14 M/mm3 (3.60-5.2); RDW 16.6 % (11.6-15.6); WHITE BLOOD COUNT 10.9 K/mm3 (4.0-10.0)
[2022-10-16 16:55] LABS: CALCIUM 9.9 mg/dL (8.5-10.1)
[2022-10-16 16:56] LABS: ALBUMIN 4.6 g/dl (3.4-5.0); BLOOD UREA NITROGEN 12.1 mg/dL (7-18)
[2022-10-16 16:59] LABS: CREATININE 0.8 mg/dL (0.55-1.3)
[2022-10-16 17:00] LABS: BILIRUBIN,TOTAL 0.6 mg/dL (0.2-1)
[2022-10-16 17:01] LABS: TOT PROT 8.8 g/dl (6.4-8.2)
[2022-10-16 19:05] LABS: HCG,QUALITATIVE URINE Negative
[2022-10-16 19:09] LABS: EPI CELLS 23 /uL (0-25.1); HYALINE CASTS 0 /uL (0-3.1); PH,URINE 5.5 (5.0-8.0); URINE APPEARANCE CLEAR; URINE BACTERIA 556 /uL (0-1359); URINE BILIRUBIN NEGATIVE (NEGATIVE); URINE COLOR YELLOW; URINE GLUCOSE (UA) NEGATIVE (NEGATIVE); URINE KETONE NEGATIVE (NEGATIVE); URINE LEUK ESTERASE NEGATIVE (NEGATIVE); URINE NITRITE NEGATIVE (NEGATIVE); URINE PROTEIN 2+ (NEGATIVE); URINE RBC 15 /uL (0-23.9); URINE UROBILINOGEN 0.2 mg/dL (0.2-1.0); URINE WBC 11 /uL (0-25.8)
== END 2022-10-16 19:54 | disposition home or self-care (01) ==
LOC: JER 14:16
PROC: 3E0333Z Introduction of Anti-inflammatory into Peripheral Vein, Percutaneous Approach (ICD-10-PCS; principal; 2022-10-16)
PROC: 3E033GC Introduction of Other Therapeutic Substance into Peripheral Vein, Percutaneous Approach (ICD-10-PCS; 2022-10-16)
PROC: 3E033GC Introduction of Other Therapeutic Substance into Peripheral Vein, Percutaneous Approach (ICD-10-PCS; 2022-10-16)
PROC: 3E0337Z Introduction of Electrolytic and Water Balance Substance into Peripheral Vein, Percutaneous Approach (ICD-10-PCS; 2022-10-16)
DX: R11.2 Nausea with vomiting, unspecified (principal); R19.7 Diarrhea, unspecified; R10.84 Generalized abdominal pain
CPT/HCPCS: 0241U-QW; 36415; 76705-TC; 80053; 81003; 83690; 84703; 85025; 87086; 99284-25

== ENCOUNTER 2022-12-09 12:36 | Emergency (ER) | payer OTHER ==
[2022-12-09 12:54] VITALS: BP 107/72; PULSE 87; RESP 20; TEMP 98.4; BMI 38.7
[2022-12-09] MEDS ORDERED: FAMOTIDINE 20 MG/50 ML IVPB 20 MG/50 ML MG IVPB ONE ×2 (14:37→14:56)
[2022-12-09] MEDS ORDERED: SODIUM CHLORIDE 1,000 ML IV STA (14:37)
[2022-12-09] MEDS ORDERED: ONDANSETRON 4 MG/2 ML VIAL IVPUSH ONE (14:37)
[2022-12-09] MEDS ORDERED: ONDANSETRON 4 MG/2 ML VIAL ONE (14:56)
[2022-12-09 15:53] LABS: BASO % 0.2 % (0-2.0); EOS % 1.1 % (0-4.5); HEMATOCRIT 41.1 % (32.4-45.2); HEMOGLOBIN 13.5 GM/dL (10.7-15.3); LYMPH % 18.8 % (8-40); MCH 26.3 pg (25.7-33.7); MCHC 32.8 g/dl (32.0-36.0); MEAN CELL VOLUME 80.2 fl (80-96); MONO % 6.9 % (3.8-10.2); PLATELET COUNT 294 10^3/uL (134-434); RBC 5.13 M/mm3 (3.60-5.2); RDW 15.9 % (11.6-15.6); WHITE BLOOD COUNT 11.7 K/mm3 (4.0-10.0)
[2022-12-09 16:14] LABS: ALBUMIN 4.2 g/dl (3.4-5.0)
[2022-12-09 16:15] LABS: BLOOD UREA NITROGEN 11.8 mg/dL (7-18)
[2022-12-09 16:17] LABS: CREATININE 0.9 mg/dL (0.55-1.3)
[2022-12-09 16:19] LABS: BILIRUBIN,TOTAL 0.6 mg/dL (0.2-1); TOT PROT 8.4 g/dl (6.4-8.2)
== END 2022-12-09 16:31 | disposition home or self-care (01) ==
LOC: JER 12:36
PROC: 3E033GC Introduction of Other Therapeutic Substance into Peripheral Vein, Percutaneous Approach (ICD-10-PCS; principal; 2022-12-09)
PROC: 3E033GC Introduction of Other Therapeutic Substance into Peripheral Vein, Percutaneous Approach (ICD-10-PCS; 2022-12-09)
DX: R11.2 Nausea with vomiting, unspecified (principal); R10.84 Generalized abdominal pain; R19.7 Diarrhea, unspecified
CPT/HCPCS: 36415; 80053; 84703; 85025; 99284-25

== ENCOUNTER 2022-12-09 21:43 | Emergency (ER) | payer OTHER ==
[2022-12-09 21:51] VITALS: BP 132/81; PULSE 68; RESP 17; TEMP 97.9; BMI 38.7
[2022-12-10] MEDS ORDERED: ACETAMINOPHEN 1000 MG/100 ML BAG IVPB ONE (01:14)
[2022-12-10] MEDS ORDERED: SODIUM CHLORIDE 0.9% 500 ML INFUS.BAG IV ONE (01:20)
[2022-12-10] MEDS ORDERED: ACETAMINOPHEN INJECTION 100 ML IVPB ONE (01:21)
[2022-12-10 04:05] LABS: EPI CELLS 14 /uL (0-25.1); HYALINE CASTS 1 /uL (0-3.1); URINE APPEARANCE CLEAR; URINE BACTERIA 250 /uL (0-1359); URINE BILIRUBIN NEGATIVE (NEGATIVE); URINE COLOR DK YELLOW; URINE GLUCOSE (UA) NEGATIVE (NEGATIVE); URINE KETONE TRACE (NEGATIVE); URINE LEUK ESTERASE NEGATIVE (NEGATIVE); URINE NITRITE NEGATIVE (NEGATIVE); URINE PROTEIN 1+ (NEGATIVE); URINE RBC 7 /uL (0-23.9); URINE WBC 8 /uL (0-25.8)
== END 2022-12-10 06:50 | disposition home or self-care (01) ==
LOC: JER 21:43
PROC: 3E033NZ Introduction of Analgesics, Hypnotics, Sedatives into Peripheral Vein, Percutaneous Approach (ICD-10-PCS; principal; 2022-12-10)
DX: R11.2 Nausea with vomiting, unspecified (principal); R19.7 Diarrhea, unspecified; R10.9 Unspecified abdominal pain; Z20.822 Contact with and (suspected) exposure to COVID-19
CPT/HCPCS: 0241U-QW; 74177-TC; 81003; 87086; 99285-25